=== PATIENT | male | born 1980 | race American Indian/Alaskan Native ===

== ENCOUNTER 2017-07-11 09:57 | Emergency (ER) | payer BC ==
[2017-07-11 10:34] VITALS: BP 155/96; PULSE 78; RESP 18; TEMP 97; O2SAT 99
--- NOTE | 2017-07-11 11:04 | ED PDOC ---
HPI: General Adult Time Seen by Provider: 07/11/17 11:04 Chief Complaint (Nursing): Medical Clearance Chief Complaint (Provider): jaw pain History Per: Patient Additional Complaint(s): 37-year-old male presents with right-sided jaw pain and toothache that started yesterday. Motrin has not provided adequate pain relief. Patient denies trauma to the affected area. He has noticed swelling to the right side of face. No fever or chills. Patient states pain is a 9 out of 10. PMD: In [place] Past Medical History Reviewed: Historical Data, Nursing Documentation, Vital Signs Vital Signs: Last Vital Signs Temp 97 F L 07/11/17 10:32 Pulse 78 07/11/17 10:32 Resp 18 07/11/17 10:32 BP 155/96 H 07/11/17 10:32 Pulse Ox 99 07/11/17 11:04 - Medical History PMH: HTN - Surgical History Other surgeries: left elbow surgery - Family History Family History: States: No Known Family Hx - Living Arrangements Living Arrangements: With Family - Social History Current smoker - smoking cessation education provided: No Alcohol: None Drugs: Denies - Home Medications Home Medications: Ambulatory Orders Medication Instructions Recorded Clindamycin [Cleocin] 1 tab PO QID #28 cap 07/11/17 traMADol [Ultram] 50 mg PO TID PRN #6 tab 07/11/17 - Allergies Allergies/Adverse Reactions: Allergies Allergy/AdvReac Type Severity Reaction Status Date / Time No Known Allergies Allergy Verified 07/11/17 10:31 Review of Systems ROS Statement: Except As Marked, All Systems Reviewed And Found Negative Constitutional: Negative for: Fever, Chills ENT: Positive for: Other (dental pain, facial swelling) Cardiovascular: Negative for: Chest Pain Respiratory: Negative for: Cough Gastrointestinal: Negative for: Nausea, Vomiting Neurological: Negative for: Headache, Dizziness Physical Exam - Reviewed Nursing Documentation Reviewed: Yes Vital Signs Reviewed: Yes - Physical Exam Appears: Positive for: Well, Non-toxic, No Acute Distress Skin: Negative for: Pallor Eye Exam: Positive for: Normal appearance ENT: Positive for: Other (Tenderness to palpation of tooth #32 right lower mandible with mild surrounding gingival swelling suspicious for possible abscess , no intraoral drainage, airway patent, uvula midline, slight swelling noted to right mandibular region with no facial cellulitis) Neck: Positive for: Normal Cardiovascular/Chest: Positive for: Regular Rate, Rhythm Respiratory: Positive for: Normal Breath Sounds. Negative for: Respiratory Distress Neurologic/Psych: Positive for: Alert, Oriented - ECG O2 Sat by Pulse Oximetry: 99 Pulse Ox Interpretation: Normal Medical Decision Making Medical Decision Making: Impression: Dental pain with possible abscess Plan: PO tramadol Patient given prescriptions for tramadol and clindamycin. He was instructed to follow up as soon as possible with dentist. Disposition - Clinical Impression Clinical Impression: Pain, dental - Patient ED Disposition Is Patient to be Admitted: No Counseled Patient/Family Regarding: Diagnosis, Need For Followup - Disposition Referrals: [facility] [Outside] Disposition: Routine/Home Disposition Time: 11:44 Condition: STABLE Additional Instructions: Take prescription medications as directed. Continue with Motrin as well for pain. Follow up as soon as possible with dentist. Prescriptions: Clindamycin [Cleocin] 1 tab PO QID #28 cap traMADol [Ultram] 50 mg PO TID PRN #6 tab PRN Reason: Pain, Moderate (4-7) Instructions: Toothache (ED) Forms: [facility] (Faroese), [facility] ED School/Work Excuse
== END 2017-07-11 11:57 | disposition home or self-care (01) ==
LOC: H.ER 09:57
DX: K08.89 Other specified disorders of teeth and supporting structures (principal); I10 Essential (primary) hypertension